=== PATIENT | male | born 1955 | race Hispanic/Latino ===

== ENCOUNTER 2017-06-17 04:14 | Emergency (ER) | payer BC ==
[2017-06-17] MEDS ORDERED: Sodium Chloride 0.9% 1,000 ML IV STA (04:28)
--- NOTE | 2017-06-17 04:32 | ED PDOC ---
Arrival/HPI <David Sweet - Last Filed: 06/17/17 06:32> <Weston Hernandez - Last Filed: 06/17/17 06:48> - General Chief Complaint: GI Problem Time Seen by Provider: 06/17/17 04:17 - History of Present Illness Narrative History of Present Illness (Text): 06/17/17 04:29 This patient is a 62yo M w/ a pmhx of HTN who is coming to the hospital stating he has not had a BM in 2 days; state he has some liquid "leaking" out of his rectum but no actual bm. +flatus. +abdominal pain. Denies all other symptoms; denies fevers/chills, GRAHAM, CP, SOB, nausea, lower extremity pain/swelling, dysuria/freq/urg. inguinal hernia repair 20+ years ago; no other abdominal surgeries. Umbilical hernia. PMD: Dr. Hickman PMhx: HTN Meds: Losartan 50mg daily Allergies: None Surgeries: inguinal hernia repair FamHx: Father Lung CA; was heavy smoker Social: Lives at home, retired, never smoked, social drinker, no illicit drugs 06/17/17 04:31 (David Sweet) Past Medical History - Provider Review Nursing Documentation Reviewed: Yes - Travel History Have you recently traveled outside [place] w/in the past 3 mons?: No - Cardiac Hx Cardiac Disorders: Yes Hx Hypertension: Yes - Pulmonary Hx Respiratory Disorders: No - Neurological Hx Neurological Disorder: No - HEENT Hx HEENT Disorder: No - Renal Hx Renal Disorder: No - Endocrine/Metabolic Hx Endocrine Disorders: No - Hematological/Oncological Hx Blood Disorders: No - Integumentary Hx Dermatological Disorder: No - Musculoskeletal/Rheumatological Hx Musculoskeletal Disorders: No - Gastrointestinal Hx Gastrointestinal Disorders: No - Genitourinary/Gynecological Hx Genitourinary Disorders: No - Psychiatric Hx Psychophysiologic Disorder: No Hx Substance Use: No - Anesthesia Hx Anesthesia: No <David Sweet - Last Filed: 06/17/17 06:32> Family/Social History - Physician Review Nursing Documentation Reviewed: Yes Family/Social History: Neoplasm/Cancer Smoking Status: Never Smoked Hx Alcohol Use: Yes Frequency of alcohol use: Socially Hx Substance Use: No <David Sweet - Last Filed: 06/17/17 06:32> Allergies/Home Meds <David Sweet - Last Filed: 06/17/17 06:32> <Weston Hernandez - Last Filed: 06/17/17 06:48> Allergies/Adverse Reactions: Allergies grass pollen Allergy (Verified 06/17/17 04:25) CONGESTION Home Medications: Home Meds Medication Instructions Recorded Confirmed Losartan Potassium 100 mg PO DAILY 06/17/17 06/17/17 Review of Systems - Review of Systems Constitutional: absent: Fatigue, Weight Change Eyes: absent: Vision Changes, Photophobia ENT: absent: Hearing Changes Respiratory: absent: SOB, Cough Cardiovascular: absent: Chest Pain, Palpitations Gastrointestinal: Abdominal Pain, Stool Changes, Constipation. absent: Diarrhea , Nausea, Vomiting, Appetite Changes Genitourinary Male: absent: Dysuria, Frequency Musculoskeletal: absent: Arthralgias Skin: absent: Rash, Pruritis Neurological: absent: Headache Endocrine: absent: Diaphoresis Hemo/Lymphatic: absent: Adenopathy Psychiatric: absent: Anxiety <David Sweet - Last Filed: 06/17/17 06:32> Physical Exam Temperature: Afebrile Blood Pressure: Hypertensive Pulse: Tachycardic Respiratory Rate: Normal Appearance: Positive for: Non-Toxic Pain Distress: None Mental Status: Positive for: Alert and Oriented X 3 - Systems Exam Head: Present: Atraumatic Pupils: Present: PERRL Extroacular Muscles: Present: EOMI Conjunctiva: Present: Normal Mouth: Present: Moist Mucous Membranes Pharnyx: Present: Normal. No: ERYTHEMA Neck: Present: Normal Range of Motion. No: Meningeal Signs Respiratory/Chest: Present: Clear to Auscultation, Good Air Exchange. No: Respiratory Distress Cardiovascular: Present: Normal S1, S2, Tachycardic. No: Murmurs Abdomen: Present: Tenderness, Normal Bowel Sounds, Other (voluntary gaurding, no pain in the inguinal region but patient states there is "tight'ness" when i push). No: Distention, Peritoneal Signs Back: No: CVA Tenderness Upper Extremity: Present: Normal Inspection. No: Cyanosis, Edema Lower Extremity: Present: Normal Inspection. No: Edema, CALF TENDERNESS Neurological: Present: GCS=15, CN II-XII Intact, Speech Normal, Gait Normal Skin: Present: Warm <David Sweet - Last Filed: 06/17/17 06:32> Medical Decision Making <David Sweet - Last Filed: 06/17/17 06:32> <Weston Hernandez - Last Filed: 06/17/17 06:48> ED Course and Treatment: 06/17/17 04:[address] abd/pelvis w/ contrast CBC CMP Lipase UA 1000ml NS, Zofran, Protonix Reassess and dispo 06/17/17 06:32 patient is still pending cat scan patient will be signed out to Dr. Hernandez patient is currently hemodynamically stable has received tramadol for pain and 20mg if IV hydralazine for BP control (David Sweet) Impression: Pt seen and evaluated by medical technicians. Pt, whose past medical history includes hypertension, presented for constipation. States he has not had a bowel movement in 2 days with associated abdominal pain. States something is leaking from his rectum. Aware and agree with HPI, clinical findings, plan, and management. Plan: -- CT Abdomen and Pelvis with IV contrast -- Labs, lipase -- UA -- IV fluids -- Zofran --Protonix -- Reassess and disposition (Weston Hernandez) - Lab Interpretations Lab Results: 06/17/17 04:46 06/17/17 04:46 Lab Results 06/17/17 04:46: Sodium 139, Potassium 4.0, Chloride 102, Carbon Dioxide 26, Anion Gap 15, BUN 12, Creatinine 0.8, Est GFR ( Amer) > 60, Est GFR (Non- Af Amer) > 60, Random Glucose 130 H, Calcium 9.5, Total Bilirubin 0.7, AST 40, ALT 42, Alkaline Phosphatase 73, Total Protein 8.0, Albumin 4.5, Globulin 3.5, Albumin/Globulin Ratio 1.3, Lipase 170 06/17/17 04:46: Urine Color Yellow, Urine Appearance Clear, Urine pH 7.0, Ur Specific [place] 1.025, Urine Protein 30 H, Urine Glucose (UA) Negative, Urine Ketones Negative, Urine Blood Trace-intact H, Urine Nitrate Negative, Urine Bilirubin Negative, Urine Urobilinogen 0.2, Ur Leukocyte Esterase Negative, Urine RBC 1 - 3, Urine WBC 0 - 2, Ur Epithelial Cells 0 - 2 06/17/17 04:46: WBC 9.9, RBC 5.33, Hgb 15.9, Hct 44.5, MCV 83.5, MCH 29.8, MCHC 35.7, RDW 13.4, Plt Count 241, MPV 9.5, Gran % 83.0 H, Lymph % (Auto) 10.8 L, [place] % (Auto) 5.7, Eos % (Auto) 0.3 L, Baso % (Auto) 0.2, Gran # 8.21 H, Lymph # 1.1 L, [place] # 0.6, Eos # 0.0, Baso # 0.02 - RAD Interpretation Radiology Orders: 06/17/17 04:28 ABD & PELVIS IV CONTRAST ONLY [CT] Stat - Medication Orders Current Medication Orders: Discontinued Medications Hydralazine HCl (Apresoline) 10 mg IVP STAT ELIAS Stop: 06/17/17 05:46 Last Admin: 06/17/17 05:56 Dose: 10 mg Hydralazine HCl (Apresoline) 10 mg IVP STAT ELIAS Stop: 06/17/17 06:31 Sodium Chloride (Sodium Chloride 0.9%) 1,000 mls @ 999 mls/hr IV .Q1H1M STA Stop: 06/17/17 05:28 Last Admin: 06/17/17 04:52 Dose: 999 mls/hr Iohexol (Omnipaque 350 100 Ml) Confirm Administered Dose 350 mg .ROUTE .STK-MED ONE Stop: 06/17/17 05:45 Ketorolac Tromethamine (Toradol) 30 mg IVP STAT STA Stop: 06/17/17 05:54 Last Admin: 06/17/17 06:00 Dose: 30 mg Ondansetron HCl (Zofran Inj) 4 mg IVP STAT STA Stop: 06/17/17 04:29 Last Admin: 06/17/17 04:52 Dose: 4 mg Pantoprazole Sodium (Protonix Inj) 40 mg IVP STAT STA Stop: 06/17/17 04:29 Last Admin: 06/17/17 04:52 Dose: 40 mg Tramadol/Acetaminophen (Ultracet 37.5/325 Mg) 1 tab PO STAT STA Stop: 06/17/17 06:18 - PA / [employer] / Resident Statement FRANKLIN has reviewed & agrees with the documentation as recorded. FRANKLIN has examined the patient and agrees with the treatment plan. <Weston Hernandez - Last Filed: 06/17/17 06:48> Disposition/Present on Arrival - Present on Arrival Any Indicators Present on Arrival: Yes History of DVT/PE: No History of Uncontrolled Diabetes: No Urinary Catheter: No History of Decub. Ulcer: No History Surgical Site Infection Following: None - Disposition Have Diagnosis and Disposition been Completed?: No Disposition Time: 06:33 <David Sweet - Last Filed: 06/17/17 06:32> - Present on Arrival Any Indicators Present on Arrival: No - Disposition Have Diagnosis and Disposition been Completed?: No Disposition Time: 07:00 <Weston Hernandez - Last Filed: 06/17/17 06:48> - Disposition Diagnosis: Abdominal pain Patient Problems: Current Active Problems Problem Status Onset Abdominal pain Acute Condition: FAIR Referrals: Jose Antonio Baptiste DO [Primary Care Provider] - Follow up with primary Forms: [email or web address] (Turkish)
[2017-06-17 04:37] VITALS: RESP 18; TEMP 98.3
[2017-06-17 05:21] LABS: URINE BILIRUBIN NEGATIVE (NEGATIVE); URINE BLOOD TRACE-INTACT (NEGATIVE); URINE GLUCOSE (UA) NEGATIVE (NEGATIVE); URINE LEUKOCYTE ESTERASE NEGATIVE Leu/uL (NEGATIVE); URINE NITRATE NEGATIVE (NEGATIVE); URINE PROTEIN 30 mg/dL (<30 mg/dL); URINE UROBILINOGEN 0.2 E.U./dL (<1 E.U./dL)
[2017-06-17 05:23] LABS: URINE APPEARANCE CLEAR (CLEAR); URINE COLOR YELLOW (YELLOW)
[2017-06-17 05:30] LABS: URINE EPITHELIAL CELLS 0 - 2 /hpf (0-5); URINE WBC 0 - 2 /hpf (0-6)
[2017-06-17 05:33] LABS: BASO # 0.02 K/mm3 (0.0-2.0); BASO % 0.2 % (0.0-3.0); EOS % 0.3 % (1.5-5.0); GRAN # 8.21 (1.4-6.5); HEMOGLOBIN 15.9 gm/dL (14.0-18.0); LYMPH # 1.1 (1.2-3.4); LYMPH % 10.8 % (22.0-35.0); MEAN CELL VOLUME 83.5 fL (80.0-105.0); MEAN CORPUSCULAR HEMOGLOBIN 29.8 pg (25.0-35.0); MEAN CORPUSCULAR HGB CONC 35.7 g/dl (31.0-37.0); MEAN PLATELET VOLUME 9.5 fl (7.0-11.0); MONO # 0.6 (0.1-0.6); MONO % 5.7 % (1.0-6.0); PLATELET COUNT 241 10^3/uL (120.0-450.0); RBC 5.33 10^6/uL (3.5-6.1); RED CELL DISTRIBUTION WIDTH 13.4 % (11.5-14.5); WHITE BLOOD COUNT 9.9 10^3/ul (4.5-11.0)
[2017-06-17] MEDS ORDERED: Iohexol 350 MG/100 ML VIAL ONE (05:44)
[2017-06-17 06:04] LABS: ALB/GLOB RATIO 1.3 (1.1-1.8); ALBUMIN 4.5 g/dL (3.0-4.8); ALT/SGPT 42 U/L (7-56); AST/SGOT 40 U/L (15-59); BLOOD UREA NITROGEN 12 mg/dL (7-21); CALCIUM 9.5 mg/dL (8.4-10.5); GFR AFRICAN-AMERICAN > 60; GFR NON-AFRICAN AMERICAN > 60; LIPASE 170 U/L (23-300)
[2017-06-17] MEDS ORDERED: TraMADol/Apap 37.5/325 mg Tab PO STA (06:17)
--- NOTE | 2017-06-17 07:13 | ED PDOC ---
Physical Exam Vital Signs Temp Pulse Resp BP Pulse Ox 06/17/17 10:12 96 H 18 152/94 H 98 06/17/17 07:33 112 H 18 163/93 H 97 06/17/17 07:12 89 167/110 H 06/17/17 05:56 89 186/124 H 06/17/17 04:36 98.3 F 93 H 18 184/117 H 98 Medical Decision Making ED Course and Treatment: 06/17/17 07:00 Patient signed out to me by Dr. Hernandez. 62 year old female presents to the emergency department complaining of constipation and abdominal pain for [address] 06/17/17 08:30 Rectal exam performed, large amount of stool found at fingertip. Unable to disimpact. Will administer fleet enema. 06/17/17 08:[address]: Dictated By: Vicki Ayers MD FINDINGS: The liver is normal. The spleen is normal. Small splenule is noted. The pancreas is normal. Possible sludge within the gallbladder. There are bilateral hypoattenuating renal lesions some of which represents cysts and some of which are too small to accurately characterize. Prominent vasculature in the left upper quadrant. Scattered colonic diverticuli are noted. There is a large amount stool in the distal sigmoid and rectum with an appearance suggestive of fecal impaction. The rectum measures almost 8 cm in diameter and there is haziness in the surrounding fat. A normal appendix is identified images 99 - 110. IMPRESSION: Findings supportive of fecal impaction of the rectum. 06/17/17 11:20 Patient's results are noted showing fecal impaction. He is otherwise well- appearing with unremarkable labs. Stool at finger tip, so manual disimpaction was not useful twice despite two fleet enemas. Patient prefers to go home rather than wait here in the ED till he has a BM. Will d/c on lactulose, miralax, and senna. Case discussed with Dr. Baptiste. Will also have him f/u GI. - Lab Interpretations Lab Results: 06/17/17 04:46 06/17/17 04:46 Lab Results 06/17/17 04:46: Sodium 139, Potassium 4.0, Chloride 102, Carbon Dioxide 26, Anion Gap 15, BUN 12, Creatinine 0.8, Est GFR ( Amer) > 60, Est GFR (Non- Af Amer) > 60, Random Glucose 130 H, Calcium 9.5, Total Bilirubin 0.7, AST 40, ALT 42, Alkaline Phosphatase 73, Total Protein 8.0, Albumin 4.5, Globulin 3.5, Albumin/Globulin Ratio 1.3, Lipase 170 06/17/17 04:46: Urine Color Yellow, Urine Appearance Clear, Urine pH 7.0, Ur Specific [place] 1.025, Urine Protein 30 H, Urine Glucose (UA) Negative, Urine Ketones Negative, Urine Blood Trace-intact H, Urine Nitrate Negative, Urine Bilirubin Negative, Urine Urobilinogen 0.2, Ur Leukocyte Esterase Negative, Urine RBC 1 - 3, Urine WBC 0 - 2, Ur Epithelial Cells 0 - 2 06/17/17 04:46: WBC 9.9, RBC 5.33, Hgb 15.9, Hct 44.5, MCV 83.5, MCH 29.8, MCHC 35.7, RDW 13.4, Plt Count 241, MPV 9.5, Gran % 83.0 H, Lymph % (Auto) 10.8 L, [place] % (Auto) 5.7, Eos % (Auto) 0.3 L, Baso % (Auto) 0.2, Gran # 8.21 H, Lymph # 1.1 L, [place] # 0.6, Eos # 0.0, Baso # 0.02 I have reviewed the lab results: Yes - RAD Interpretation Radiology Orders: 06/17/17 04:28 ABD & PELVIS IV CONTRAST ONLY [CT] Stat - Medication Orders Current Medication Orders: Discontinued Medications Hydralazine HCl (Apresoline) 10 mg IVP STAT ELIAS Stop: 06/17/17 05:46 Last Admin: 06/17/17 05:56 Dose: 10 mg Hydralazine HCl (Apresoline) 10 mg IVP STAT ELIAS Stop: 06/17/17 06:31 Last Admin: 06/17/17 07:12 Dose: 10 mg Sodium Chloride (Sodium Chloride 0.9%) 1,000 mls @ 999 mls/hr IV .Q1H1M STA Stop: 06/17/17 05:28 Last Admin: 06/17/17 04:52 Dose: 999 mls/hr Iohexol (Omnipaque 350 100 Ml) Confirm Administered Dose 350 mg .ROUTE .STK-MED ONE Stop: 06/17/17 05:45 Ketorolac Tromethamine (Toradol) 30 mg IVP STAT STA Stop: 06/17/17 05:54 Last Admin: 06/17/17 06:00 Dose: 30 mg Lactulose (Enulose) 20 gm PO ONCE STA Stop: 06/17/17 10:40 Last Admin: 06/17/17 11:01 Dose: 20 gm Magnesium Citrate (Citrate Of Mag) 150 ml PO ONCE STA Stop: 06/17/17 09:08 Last Admin: 06/17/17 09:22 Dose: 150 ml Morphine Sulfate (Morphine) 2 mg IVP STAT STA Stop: 06/17/17 10:06 Last Admin: 06/17/17 10:10 Dose: 2 mg Ondansetron HCl (Zofran Inj) 4 mg IVP STAT STA Stop: 06/17/17 04:29 Last Admin: 06/17/17 04:52 Dose: 4 mg Pantoprazole Sodium (Protonix Inj) 40 mg IVP STAT STA Stop: 06/17/17 04:29 Last Admin: 06/17/17 04:52 Dose: 40 mg Sodium Phosphate (Fleet Enema) 135 ml RC STAT STA Stop: 06/17/17 08:31 Last Admin: 06/17/17 08:41 Dose: 135 ml Sodium Phosphate (Fleet Enema) 135 ml RC STAT STA Stop: 06/17/17 10:05 Last Admin: 06/17/17 10:34 Dose: 135 ml Tramadol/Acetaminophen (Ultracet 37.5/325 Mg) 1 tab PO STAT STA Stop: 06/17/17 06:18 Last Admin: 06/17/17 06:30 Dose: 1 tab - Scribe Statement The provider has reviewed the documentation as recorded by the Guero Esparza Provider Scribe Attestation: All medical record entries made by the Scribkarina were at my direction and personally dictated by me. I have reviewed the chart and agree that the record accurately reflects my personal performance of the history, physical exam, medical decision making, and the department course for this patient. I have also personally directed, reviewed, and agree with the discharge instructions and disposition. Disposition/Present on Arrival - Present on Arrival Any Indicators Present on Arrival: No History of DVT/PE: No History of Uncontrolled Diabetes: No Urinary Catheter: No History of Decub. Ulcer: No History Surgical Site Infection Following: None - Disposition Have Diagnosis and Disposition been Completed?: Yes Diagnosis: Abdominal pain, Constipation Disposition: HOME/ ROUTINE Disposition Time: 08:30 Patient Plan: Discharge Patient Problems: Current Active Problems Problem Status Onset Abdominal pain Acute Constipation Acute Condition: GOOD Discharge Instructions (ExitCare): Constipation (ED), High Fiber Diet (ED) Additional Instructions: Drink plenty of fluids. High fiber diet. Take Miralax daily x 5 days and continue senna 2 tabs QHS. Follow up with Dr. Baptiste and gastroenterology. Return to the emergency department if any new concerning symptoms. Prescriptions: Lactulose [Enulose] 30 ml PO Q6H PRN #500 ml PRN Reason: Constipation Polyethylene Glycol 3350 [Miralax] 17 gm PO DAILY #529 gm Sennosides [Senna] 2 tab PO HS #60 tablet Referrals: Jose Antonio Baptiste DO [Primary Care Provider] - Follow up with primary August Solis MD [Staff Provider] - Follow up with primary Forms: [employer] (Irish)
--- NOTE | 2017-06-17 07:49 | CT ---
EXAM: CT Abdomen and Pelvis With Intravenous Contrast CLINICAL HISTORY: 62 years old, male; Pain; Abdominal pain; Generalized; Prior surgery; Surgery date: 6+ months; Surgery type: Hernia TECHNIQUE: Axial computed tomography images of the abdomen and pelvis with intravenous contrast. This CT exam was performed using one or more of the following dose reduction techniques: automated exposure control, adjustment of the mA and/or kV according to patient size, and/or use of iterative reconstruction technique. Coronal and sagittal reformatted images were created and reviewed. CONTRAST: 100 mL of omni 350 administered intravenously. EXAM DATE/TIME: 06/17/2017 4:28 AM COMPARISON: No relevant prior studies available. FINDINGS: The liver is normal. The spleen is normal. Small splenule is noted. The pancreas is normal. Possible sludge within the gallbladder. There are bilateral hypoattenuating renal lesions some of which represents cysts and some of which are too small to accurately characterize. Prominent vasculature in the left upper quadrant. Scattered colonic diverticuli are noted. There is a large amount stool in the distal sigmoid and rectum with an appearance suggestive of fecal impaction. The rectum measures almost 8 cm in diameter and there is haziness in the surrounding fat. A normal appendix is identified images 99 - 110. IMPRESSION: Findings supportive of fecal impaction of the rectum.
[2017-06-17] MEDS ORDERED: Magnesium Citrate Oral SOL (300 ml) PO STA (09:07)
[2017-06-17] MEDS ORDERED: Morphine 2 mg/ml ISec IVP STA (10:05)
[2017-06-17 12:00] VITALS: BP 155/88; PULSE 88; O2SAT 97
== END 2017-06-17 11:41 | disposition home or self-care (01) ==
LOC: ED 04:14
DX: K59.00 Constipation, unspecified (principal); R10.9 Unspecified abdominal pain
CPT/HCPCS: 74177; 80053; 81001; 83690; 85025; 96361; 96374; 96375; 96376; 99284; C9113; J0360; J1885; J2270; J2405; J7040; Q9967